=== PATIENT | male | born 1995 | race Caucasian/White ===

== ENCOUNTER 2018-02-25 10:55 | Emergency (ER) | payer OTHER ==
[2018-02-25] MEDS ORDERED: NS 1,000 ML IV ONE ×2 (11:16→12:48)
[2018-02-25] MEDS ORDERED: METOCLOPRAMIDE 10 MG/2 ML VIAL IVP ONE (11:39)
[2018-02-25] MEDS ORDERED: DEXAMETHASONE 10 MG/ML VIAL IVP ONE (11:39)
--- NOTE | 2018-02-25 11:39 | EDPHY ---
General - History History Review: I reviewed the patient's medical records Smoking Status: Never smoked Time Seen by Provider: 02/25/18 11:23 Narrative: CHIEF COMPLAINT: Headache, nausea, vomiting, diarrhea HISTORY OF PRESENT ILLNESS: Patient presents with prior vehicle with complaints of headache, vomiting, diarrhea, nausea and body aches. Symptoms started gradually last Tuesday and have been constant duration. The headache is the most severe of his complaints , rated as moderate to severe. He has had some neck pain and stiffness at time , none currently. He has had fever that has been persistent but does respond to Tylenol ibuprofen. This is a subjective fever. He has diarrhea for 3 to 4 times a day that is starting to improve. He has had chills and sweats. He has decreased sleep at night. He has achy abdomen but no true abdominal pain. No urinary complaints. No rash. He was seen at urgent care prior to arrival, and they recommended that he present here for higher level of care. No modifying factors. No other associated complaints. REVIEW OF SYSTEMS: 10 systems were reviewed and negative with the exception of the elements mentioned in the history of present illness. PCP: None SPECIALISTS: None PAST MEDICAL HISTORY: Denies PAST SURGICAL HISTORY: No surgical history SOCIAL HISTORY: Nonsmoker. Occasional marijuana and alcohol use. [place] [email or web address] student. Lives independently in [place] FAMILY HISTORY: Noncontributory EXAMINATION: Vitals: Triage VS reviewed General Appearance: Alert, no distress. Viral appearing. Conversing appropriately in complete sentences. Head: normocephalic, atraumatic Eyes: Pupils equal and round, no conjunctival pallor or injection ENT, Mouth: Mucous membranes dry. Airway widely patent. No pharyngeal erythema or edema. No trismus Neck: Midline trachea and normal inspection. Supple with soft tissue tenderness of the longitudinal and trapezius muscles. There is no midline tenderness, crepitus or deformity. No meningismus. Respiratory: Lungs are clear to auscultation Cardiovascular: Regular rate and rhythm. No murmur Gastrointestinal: Abdomen is soft and nontender. Bowel sounds present all 4 quadrants. No guarding. No tympany rigidity. Back: non-tender, no bony abnormalities Neurological: GCS 15. A&O, nonfocal, normal gait Skin: Warm and dry, no rash no petechiae or purpura Extremities: Nontender, no pedal edema Psychiatric: Mood and affect normal DIFFERENTIAL DIAGNOSES: Including but not limited to tension headache, aseptic meningitis, meningitis, subarachnoid hemorrhage, intracranial mass, migraine, cluster headache MDM: 11:30 a.m. Headache of 1 week duration with reports of neck pain and stiffness. I do not appreciate any nuchal rigidity on exam but he does have tenderness. His vital signs are within normal limits. He does not meet SIRS criteria. He is in no acute distress. He does have a viral appearance to him. IV has been established. I will obtain laboratory studies and administer symptomatic medications. I have ordered CT scan of the head, as this is indicated with 1 week long history with no previous headaches. I discussed with Dr. Barriga. 12:30 p.m. CBC is completely within normal limits. Chemistry unremarkable with some elevation of his liver function test. I have added hepatitis panel and mononucleosis studies. I have also ordered a gallbladder ultrasound as he has had some vomiting and diarrhea. I have informed the patient of this and ordered a 2nd L fluid as well. Headache is improving with medications. 1:30 p.m. Hepatitis and mono test pending. Ultrasound not yet performed. I have added an influenza test. 2:[address] Maloney. Right upper quadrant ultrasound is negative for any acute findings. 2:50 p.m. Hudspeth test is negative. Flu test negative. He has been evaluated by Dr. Alexandra. She discuss lumbar puncture. At this time he is declining lumbar puncture. She has discussed risks, benefits alternatives with him. He is feeling better would like to try to eat or drink something. We will trial him on p.o. Intake. 3:50 p.m. Patient re-evaluated. Patient has been tolerating liquids and crackers without difficulty. He still has a mild but tolerable headache. He continues to decline the lumbar puncture. His vital signs remained normal. At no point has he met any SIRS criteria. He appears to be feeling much better than time of arrival. We discuss symptomatic medications. We discussed risks, benefits alternatives of not performing lumbar puncture. In my professional pending I do feel he has full faculties to make this decision. We discussed discharge home with symptomatic meds, follow up primary care physician. We discussed ED precautions for any change in headache, neck pain or stiffness, persistent fever , motor sensory complaints. I also stressed to him that he may return to the emergency department any time should he wish to pursue the lumbar puncture. He is comfortable this plan. He is ambulatory, alert and oriented and discharged home stable condition with his girlfriend driving him home. SUPERVISION: Patient was evaluated and examined in conjunction with my secondary supervising physician as documented. We have both examined the patient. CONSULTATION: None. (Zachary Deal) This patient was initially evaluated and managed by the PA. I also interviewed and briefly examined the patient. He has had fever, N/V/D and headache for the past several days. Fever responds to OTC antipyretics. He c/o neck stiffness that was present earlier, gone now. Thinks he has had meningitis vaccination. He is alert and fully oriented, normal neuro exam at time of my interview. No meningeal signs. I doubt bacterial meningitis, given that he has been ill for past week; but viral meningitis is a possibility. He has no alteration of mental status. I spoke with him at some length about performing lumbar puncture to rule out meningitis. Risk and benefits were reviewed. He understands that the diagnosis will remain in question without an LP. He is able to make his own medical decisions and chooses to forego lumbar puncture at this time. I have reviewed the chart and agree with the plan of care. I am the secondary supervising physician. (Yoselyn Alexandra) - Objective Vital Signs: Initial Vital Signs Temperature (C) 37.1 C 02/25/18 10:56 Heart Rate 90 02/25/18 10:56 Respiratory Rate 17 02/25/18 10:56 Blood Pressure 117/78 02/25/18 10:56 O2 Sat (%) 98 02/25/18 10:56 O2 Delivery Mode Room Air Allergies/Adverse Reactions: No Known Allergies Allergy (Unverified 02/25/18 10:56) Home Medications: Medication Instructions Recorded Metoclopramide [Reglan 10 mg tab 10 mg PO BID PRN #6 tab 02/25/18 (*)] Promethazine HCl [Phenergan 25mg 25 mg PO Q8 PRN #12 tab 02/25/18 (*)] Laboratory Results: Laboratory Results 02/25/18 11:25 02/25/18 11:25 02/25/18 11:25 Hepatitis A IgM Ab NEGATIVE (NEGATIVE) Hep Bs Antigen NEGATIVE (NEGATIVE) Hep B Core IgM Ab NEGATIVE (NEGATIVE) Hepatitis C Antibody NEGATIVE (NEGATIVE) Medications Given: Discontinued Medications Dexamethasone (Decadron Injection) 10 mg IVP EDNOW ONE Stop: 02/25/18 11:40 Last Admin: 02/25/18 11:46 Dose: 10 mg Diphenhydramine HCl (Benadryl Injection) 25 mg IVP EDNOW ONE Stop: 02/25/18 11:40 Last Admin: 02/25/18 11:45 Dose: 25 mg Sodium Chloride (Ns) 1,000 mls @ 0 mls/hr IV ONCE ONE PRN Reason: Wide Open Stop: 02/25/18 11:17 Last Admin: 02/25/18 11:22 Dose: 1,000 mls Sodium Chloride (Ns) 1,000 mls @ 0 mls/hr IV EDNOW ONE; Wide Open PRN Reason: Protocol Stop: 02/25/18 12:49 Last Admin: 02/25/18 12:55 Dose: 1,000 mls Metoclopramide HCl (Reglan Injection) 10 mg IVP EDNOW ONE Stop: 02/25/18 11:40 Last Admin: 02/25/18 11:45 Dose: 10 mg Departure - Departure Disposition: Home, Routine, Self-Care Clinical Impression: Elevated liver function tests, Nausea Acute headache Qualifiers: Headache type: unspecified Intractability: not intractable Qualified Code(s): R51 - Headache Diarrhea Qualifiers: Diarrhea type: unspecified type Qualified Code(s): R19.7 - Diarrhea, unspecified Condition: Good Instructions: Gastroenteritis (ED), Acute Headache (ED), Viral Syndrome (ED) Additional Instructions: 1. Medications as prescribed as needed 2. Ibuprofen 600 mg every 6 hr for the next 5-7 days 3. Contact the on-call primary care physician as provided to establish care and to follow up for resolution of your liver function test 4. Emergency depart precautions for worsening headache, intractable headache, neck stiffness, persistent fever, chest pain, shortness of breath or if you change your mind regarding lumbar puncture. Referrals: Dayanara Smith MD [Medical Doctor] - As per Instructions Stand Alone Forms: School Excuse Prescriptions: Metoclopramide [Reglan 10 mg tab (*)] 10 mg PO BID PRN #6 tab PRN Reason: Headache Promethazine HCl [Phenergan 25mg (*)] 25 mg PO Q8 PRN #12 tab PRN Reason: Nausea/Vomiting, Use 1st
[2018-02-25] MEDS ORDERED: DEXAMETHASONE 4 MG/ML VIAL ONE (11:43)
[2018-02-25 11:45] LABS: PLATELET COUNT 198 10^3/uL (150-400)
[2018-02-25 16:29] VITALS: BP 117/62
[2018-02-27 05:57] LABS: HEPATITIS A ANTIBODY IGM (BCH) NEGATIVE (NEGATIVE); HEPATITIS B CORE AB IGM NEGATIVE (NEGATIVE); HEPATITIS B SURFACE ANTIGEN NEGATIVE (NEGATIVE); HEPATITIS C ANTIBODY TOTAL NEGATIVE (NEGATIVE)
== END 2018-02-25 16:29 | disposition home or self-care (01) ==
DX: R51 Headache (principal); R19.7 Diarrhea, unspecified; R11.2 Nausea with vomiting, unspecified; E86.9 Volume depletion, unspecified; R79.89 Other specified abnormal findings of blood chemistry
CPT/HCPCS: 96374; G0472; J1100; J1200; J2765